=== PATIENT | male | born 1940 | race Caucasian/White ===

== ENCOUNTER 2024-02-01 11:56 | Emergency (ER) | payer MEDICARE, OTHER, SELFPAY ==
[2024-02-01 11:58] VITALS: BP 139/61
--- NOTE | 2024-02-01 12:35 | EDRN ---
Fredo BALDERAS in room w/pt.
--- NOTE | 2024-02-01 12:45 | ED.MUSCINJ ---
HPI-Injury
General
Chief Complaint: Musculo-Skeletal Complaint
Source: patient and spouse
Exam Limitations: none
Time Seen by Provider: 02/01/24 12:32
Nursing documentation reviewed up to this point in time: agreed with
Travel History
Have you had any contact with someone who has COVID-19?: No
Do you have any symptoms of coronavirus? Fever > 100 degrees, chills, cough, shortness of breath, sore throat, loss of taste or smell, muscle aches, or headache?: No
History of Present Illness-Injury
Initial Injury comments:
83-year-old male with history of A-fib on aspirin only, HTN, HLD, IDDM, dementia, mild COPD presents with his who states 2 nights ago he went to bed and was feeling fine, woke up yesterday morning with swollen painful joint at the base of his
right thumb. No recollection of overuse or injury.
Past History
Past History
ED Past Medical History: Arrthythmia (Atrial fibrillation on ASA only), CHF, COPD, HTN, Hypercholesterolemia, IDDM, Valvular disease and Other (mitral regurgitation, renal artery stenosis status post stent, hyperlipidemia, hypertension, left leg DVT)
ED Past Surgical History: Cardiac (CABG, Mitral valve repair), Cholecystectomy, Tonsilectomy, Urological (Renal stenosis with renal artery stent) and Other (Umbilical hernia repair)
Social History
Tobacco: Former smoker
Alcohol: None
Drug: None
Personal:
Living: with family
Employment: Retired
Family History
Family History: CAD
Review of Systems
Review of Systems
Allergies reviewed?: Yes
Unable to obtain full review of systems at this time due to: dementia
Other source history: family
All Other Systems: ROS reviewed and negative except as documented in HPI and ROS
Constitutional: Denies fever
Respiratory: Denies trouble breathing
Cardiac: Denies chest pain
ABD/GI: Denies abdominal pain or nausea
Musculoskeletal: Reports other (pain and swelling base of right thumb)
Skin: Reports no symptoms
Musculoskeletal Injury Exam
Musculoskeletal Injury Exam
base of right thumb:
Pain with Movement?: Moderate
Tender to palpation?: Moderate
Soft tissue swelling?: Mild
Joint instability?: No
Malalignment/deformity?: No
Range of motion: Limited
Distal skin color and temperature: normal-warm & good color
Capillary Refill: normal
Normal distal neurovascular exam?: Yes
Phy Exam
Physical Exam
Physical Exam:
PHYSICAL EXAMINATION:
General: no apparent distress, not acutely ill
Neuro: alert and oriented mild dementia
Psychiatric: well kept. interactive and cooperative
Musculoskeletal: Moves with ease
Skin: Warm, pink.
Injury Course
Orders/Labs/Results
Orders:
Orders
02/01/24 12:05
Hand, Right 3 View [CR Hand - Right Min 3 Views] Urgent
Comment:
Reason For Exam: pain
02/01/24 12:44
Thumb Spica Right-Treatment ONCE
02/01/24 13:04
Indomethacin [Indocin] 50 mg PO NOW STA
MDM/Problems Addressed
Differential Diagnosis Includes:
gouty arthritis, osteoarthritis, RA
MDM/Problems Addressed:
83-year-old male with history of A-fib on aspirin only, HTN, HLD, IDDM, dementia, mild COPD presents with his who states 2 nights ago he went to bed and was feeling fine, woke up yesterday morning with swollen painful joint at the base of his
right thumb. No recollection of overuse or injury.
Xray right hand radiology report read: IMPRESSION:
No acute fracture or dislocation. Scattered mild to moderate osteoarthritic changes of the interphalangeal joints. Mild to moderate degenerative changes of the first through third metacarpophalangeal joint. Moderate degenerative changes of the basal
and triscaphe joints. Mild soft tissue swelling of the first through third digits. Findings likely represent combination of degenerative osteoarthritis and inflammatory arthritis such as rheumatoid arthritis.
Rx for Indocin sent to his pharmacy
Will F/U with PCP in 7-10 days.
Copy of xray report given to for PCP
Chronic conditions affecting care: DM, HTN and Kidney disease
*Critical Care Note
Total Time (30-74mins, 75-104mins- exclusive of procedures): Not Applicable
ED Attending Note
-
Portions of this chart may have been created with voice recognition software.� Occasional wrong word or��sound alike� substitutions may have occurred due to the inherent limitations of voice recognition software.
Discharge Plan
Departure
Patient Disposition: Home (Routine Discharge)
Date of Disposition: 02/01/24
Time of Disposition: 12:55
Patient with high blood pressure during this ER visit?: No
Condition: Good
Discharge Problem:
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
Instructions: Osteoarthritis (DC), Indomethacin
Prescriptions:
New
indomethacin 25 mg capsule
25 mg PO BID Qty: 20 0RF
No Action
torsemide 20 MG tablet
20 mg PO DAILY
metoprolol succinate 50 MG tablet extended release 24 hr
75 mg PO BID
amlodipine 5 MG tablet
2.5 mg PO DAILY
warfarin 6 MG tablet
6 mg PO DAILY
ascorbic acid (vitamin C) [Vitamin C] 500 MG tablet
500 mg PO DAILY
insulin aspart U-100 [Novolog U-100 Insulin aspart] 1,000 UNITS/10 ML solution
20 units SC DAILY@1130,1630
omeprazole 20 MG capsule,delayed release(DR/EC)
20 mg PO .AC BREAKFAST
doxazosin 4 MG tablet
4 mg PO DAILY
loratadine 10 MG tablet
10 mg PO DAILY
iron bis glyc,ps complex-vit C 1 EACH capsule
1 cap PO DAILY
insulin detemir U-100 [Levemir U-100 Insulin] 1,000 UNITS/10 ML solution
34 units SC DAILY
cholecalciferol (vitamin D3) 1,000 UNITS tablet
1,000 units PO DAILY
multivitamin with folic acid [Tab-A-Mini] 1 TABLET tablet
1 tab PO DAILY
evolocumab [Repatha Syringe] 140 MG/ML syringe
140 mg SQ Q14D
insulin aspart U-100 [Novolog U-100 Insulin aspart] 1,000 UNITS/10 ML solution
14 units SC DAILY@0730
Referrals:
Baljit Regalado MD [Active] - As needed
Bernadette Son DO [Family Provider] - Follow up in 5-7 days
Activity Restrictions/Additional Instructions:
As we discussed, I sent a prescription to your pharmacy for Indocin 25 mg to take twice a day for pain/inflammation. You were given a dose here today.
You may also take Tylenol 1000 mg up to 3 times a day as needed for pain.
Wear the splint if it helps until you are comfortable moving the thumb
Call your doctors office Saturday morning and make an appointment for sometime within the next week for recheck.
I have provided you with the name of an orthopedic doctor to use if you are not much improved within the next 7 to 10 days.
Interventions
Interventions:
*Risk Screen - Suicide Last Done: 02/01/24 11:58
*General Assessment Last Done: 02/01/24 11:58
*Neglect/Abuse Screening Last Done: 02/01/24 11:58
ED- Fall Risk Assessment Last Done: 02/01/24 12:58
*ED COVID-19 Vaccine History Last Done: 02/01/24 12:58
*Nursing Disposition Last Done: 02/01/24 13:35
ED-Musculoskeletal Assessment Last Done: 02/01/24 12:34
Discharge Date and Time
Discharge Date/Time: 02/01/24 13:35
Print Language: LIBYAN
[2024-02-01 13:20] VITALS: BP 134/67
[2024-02-01] MEDS: INDOCIN 50 MG PO (13:43)
== END 2024-02-01 13:35 | disposition home or self-care (01) ==
LOC: EMR 11:56
PROVIDERS: EMERGENCY PHYSICIAN Emergency Medicine; FAMILY PHYSICIAN Family Medicine
DX: M18.11 Unilateral primary osteoarthritis of first carpometacarpal joint, right hand (principal); M25.441 Effusion, right hand; M25.541 Pain in joints of right hand; I48.91 Unspecified atrial fibrillation; I11.0 Hypertensive heart disease with heart failure; I50.9 Heart failure, unspecified; J44.9 Chronic obstructive pulmonary disease, unspecified; E11.9 Type 2 diabetes mellitus without complications; E78.00 Pure hypercholesterolemia, unspecified; F03.90 Unspecified dementia, unspecified severity, without behavioral disturbance, psychotic disturbance, mood disturbance, and anxiety; I34.0 Nonrheumatic mitral (valve) insufficiency; Z95.1 Presence of aortocoronary bypass graft; Z95.5 Presence of coronary angioplasty implant and graft; Z79.82 Long term (current) use of aspirin; Z79.4 Long term (current) use of insulin; Z87.891 Personal history of nicotine dependence; Z86.718 Personal history of other venous thrombosis and embolism; Z90.49 Acquired absence of other specified parts of digestive tract
CPT/HCPCS: 99283; 29125; 73130